=== PATIENT | female | born 1955 | race Caucasian/White ===

== ENCOUNTER 2019-05-18 09:56 | Outpatient (CLI) | payer OTHER, SELFPAY ==
[2019-05-18 11:11] LABS: Albumin Level 4.2 g/dL (3.5-5.1); Hemoglobin A1C 5.7 % (<5.7)
[2019-05-18 11:12] LABS: Urine Cotinine NEGATIVE
[2019-05-18 11:15] LABS: Blood Urea Nitrogen 17 mg/dL (7-17); Calcium 9.5 mg/dL (8.4-10.2); Carbon Dioxide 28 mmol/L (22-30); Chloride 99 mmol/L (98-107); Estimated Glomerular Filt Rate > 60; Glucose 97 mg/dL (65-105); Potassium 4.1 mmol/L (3.4-5.0); Sodium 138 mmol/L (137-145)
[2019-05-18 11:21] LABS: Basophils Absolute Auto 0.1 K/mm3 (0.0-0.1); Basophils Percent Auto 0.7 % (0.2-1.2); Eosinophils Absolute Auto 0.1 K/mm3 (0-0.3); Eosinophils Percent Auto 1.9 % (0-4.4); Hematocrit 43.7 % (37.0-47.0); Hemoglobin 14.4 g/dL (12.0-15.0); Immature Granulocyte Absolute 0.03 K/mm3 (0.00-0.031); Immature Granulocyte Percent A 0.4 % (0-0.5); Lymphocytes Absolute Auto 1.52 K/mm3 (0.9-3.2); Lymphocytes Percent Auto 22.2 % (18.3-44.2); Mean Corpuscular Volume 87.9 fl (80-100); Mean Platelet Volume 9.5 fl (7.4-10.4); Monocytes Absolute Auto 0.5 K/mm3 (0.1-0.6); Monocytes Percent Auto 6.6 % (2.6-8.5); Neutrophils Absolute Auto 4.7 K/mm3 (1.3-6.7); Neutrophils Percent Auto 68.2 % (45.5-73.1); Platelet Count Result 310 k/mm3 (150-375); Red Blood Count 4.97 M/mm3 (4.2-5.4); Red Cell Distribution Width 12.8 % (11.5-14.5); White Blood Count 6.9 K/mm3 (4.5-10.0)
== END 2019-05-18 09:57 | disposition home or self-care (01) ==
PROVIDERS: Anesthesiology; PCP Family Medicine; Visit Provider Orthopaedic Surgery
DX: Z01.818 Encounter for other preprocedural examination (principal); M17.12 Unilateral primary osteoarthritis, left knee; Z79.899 Other long term (current) drug therapy
CPT/HCPCS: 36415; 80048; 80307; 82040; 83036; 85025; 87081

== ENCOUNTER 2019-06-08 11:44 | Inpatient (IN) | payer OTHER, SELFPAY ==
[2019-05-18 10:37] VITALS: BP 160/81; PULSE 68; TEMP 36.8; O2SAT 95; BMI 39.4
[2019-06-08] VITALS (11 sets, daily range): BP systolic 125–165; BP diastolic 55–103; PULSE 94–103; RESP 12–21; TEMP 36.4–37.6; O2SAT 92–100
--- NOTE | ~2019-06-08 | XR_ITS ---
EXAMINATION: XR knee LT 2V DATE: 06/08/2019 10:32 INDICATION: Postoperative evaluation following left total knee arthroplasty. TECHNIQUE: Anteroposterior and lateral views of the left knee were obtained. COMPARISON: None. FINDINGS: Left total knee arthroplasty with patellar resurfacing appears well seated and in near anatomic align ment. No fractures identified. Expected postoperative subcutaneous and intra-articular gas. IMPRESSION: 1. Left total knee arthroplasty, negative for postoperative purposes. Reviewed, dictated and finalized at location A.
[2019-06-08] MEDS: LACTATED RINGERS 1,000 ML 30 ML IV CONT ×2 (06:45→10:26)
--- NOTE | 2019-06-08 06:45 | WPDANESEPPF ---
Anes - Initial Pre Proc Eval Procedure: Operation Date: 06/08/19 07:30 Proposed Procedures p Left Total Knee Arthroplasty - Ang Lazo MD Date/Time: 06/08/19 06:45 Surgeon: Ang Lazo MD Pre Op Diagnosis: Left Knee Osteoarthritis Patient Data Age: 63 Gender: F Height: 4 ft 11.75 in Weight: 90.7 kg Last Vital Signs Temp 36.8 C 05/18/19 10:37 Pulse 68 05/18/19 10:37 BP 160/81 H 05/18/19 10:37 Pulse Ox 95 05/18/19 10:37 Allergies Allergy/AdvReac Type Severity Reaction Status Date / Time Sulfa (Sulfonamide Allergy Unknown Hives Verified 05/18/19 10:58 Antibiotics) Home Medications Medication Instructions Recorded Confirmed Type acetaminophen [Tylenol Extra 1,000 mg PO Q6H PRN 01/11/19 05/24/19 History Strength] cholecalciferol (vitamin D3) 1,000 unit PO DAILY 01/11/19 05/24/19 History [Vitamin D3] fexofenadine [Lissett Allergy] 180 mg PO DAILY 01/11/19 05/24/19 History fluticasone propionate [Flonase 1 spray INTRANASAL DAILY 01/11/19 05/24/19 History Allergy Relief] glucosamine-chondroitin [Osteo 2 tablet PO DAILY 01/11/19 05/24/19 History Bi-Flex] hydrochlorothiazide 25 mg PO DAILY 01/11/19 05/24/19 History meloxicam 15 mg PO DAILY 01/11/19 05/24/19 History vitamin B complex [B 1 tablet PO DAILY 01/11/19 05/24/19 History Complex-Vitamin B12] aspirin 81 mg PO BID #28 tablet 02/17/19 05/24/19 Rx oxycodone-acetaminophen 5 mg-325 1 - 2 tablet PO Q4H PRN #40 tablet 04/21/19 05/24/19 Rx mg tablet MDD 8 Patient hx anesthesia problems: none Family hx anesthesia problems: none PMFSH Past Medical History Medical History Arthritis Contracture, right knee Hypertension Morbid obesity Surgical History Surgical History Osteoarthritis of left knee Presence of right artificial knee joint Social History Social History Smoking status: Never smoker Alcohol intake: never Substance use: never Substance use type: does not use Gender identity (if verbalized by the patient): Female Spiritual care concerns: No Agree to blood products: Yes Anes - Eval Final PreProcedure Day of Procedure 06/08/19 06:45 Patient weight: morbidly obese Heart: regular rate and rhythm Lungs: clear to auscultation Airway: Mallampati scale class II Neurological: alert and oriented Last oral intake: >/= 8 hours ASA classification: III Emergent: no Anesthetic plan: proceed Anesthesia type and monitoring: general LMA and standard monitoring Informed Consent: The patient's anesthetic plan and its attendant risks and benefits were discussed with the patient/family/POA. Questions were solicited and answers provided to the satisfaction of the patient/family/POA.
[2019-06-08] MEDS: TRANEXAMIC ACID 1,000MG/ISO100 1,000 MG/100 ML BAG 200 MG IVPB (07:00)
--- NOTE | 2019-06-08 07:24 | WPDANESPNB ---
Anes - Peripheral Nerve Block Date/Time: 06/08/19 07:24 I have discussed with the patient/family/POA the placement of a peripheral nerve block for post-operative pain management, including associated risks, benefits, complications, and side effects. Alternative methods of post-operative analgesia were detailed. Questions were solicited and answers provided to the satisfaction of the patient/family/POA. Time-Out: A pre-procedural Time-Out was completed immediately before starting the procedure and confirmed: Patient Identification, Site, Procedure, Patient Position and the Availability of Requisite Equipment. Clinical Indications: Acute post-operative pain management requested by the operative surgeon. Nerve Block Insertion Note Anes-nerve block: femoral left Patient position: supine Skin prep: chlorhexidine Needle: 22 gauge, stimulating, insulated echogenic needle. Needle length: 50 mm Technique: nerve stimulation lost at (mA) (0.38) Injectate: bupivacaine 0.25% with epi 5 mcg/ml (20cc) Observations: tolerated well Complications: none
--- NOTE | 2019-06-08 07:24 | WPDHPUPDATE1 ---
History and Physical Update Update Date/Time: 06/08/19 07:24 History and Physical has been reviewed, including an updated exam of the patient. There are NO changes in the patient's condition. Risks, benefits, and alternatives have been discussed and questions answered. Patient agrees to proceed with procedure.
[2019-06-08] MEDS: ceFAZolin 2 GM/D5W 50 ML 2 GM/50 ML BAG IVPB (07:29)
[2019-06-08] MEDS: GENTAMICIN BONE CEMENT REFOBACIN 1 EACH TOPICAL (08:05)
--- NOTE | 2019-06-08 10:48 | PM.PROC ---
Procedure Note - Detailed Date of procedure: 06/08/19 Pre-op diagnosis: Left Knee Osteoarthritis Post-op diagnosis: same Procedure performed: Total knee arthroplasty, left Description of procedure: All cemented total knee arthroplasty. Posterior stabilized femur. Standard bony resections. Very large medial release. Flexion limited by adipose tissue. Preoperative flexion limited to 70?. Implants: Javon Triathlon size 2 cemented femur, size 2 cemented low-profile tibia, 13mm posterior stabilized polyethylene insert, 32mm asymmetric polyethylene patellar component. Anesthesia: GETA and regional (subsartorial nerve block) Surgeon: Ang Lazo MD Estimated blood loss (mL): 200 Drains: No Complications: None Condition: stable Disposition: PACU Findings: OPERATIVE DETAILS: The patient was given a nerve block preoperatively, and then brought to the operating room. A general anesthetic was administered. The leg was prepped and draped in the usual sterile fashion. The limb was elevated and the tourniquet inflated to 300 mmHg during initial exposure, and cementation. A longitudinal incision was created along the medial border of the patella and patellar tendon, and a minimally invasive optimized mid-vastus approach to the knee was performed. A very large medial release was taken. The knee was then flexed. The osteophytes were carefully removed. The intramedullary guide was placed in the femoral canal. The distal femoral resection was then taken with the oscillating saw. The collateral ligaments were carefully protected. The tibia was carefully exposed. The jig was applied, and the proximal tibia was resected according to preoperative plan. The pain really anesthetic mixture was injected into the periarticular tissues. The knee was balanced in extension, and appropriate releases were taken where needed. The anterior cruciate and posterior cruciate ligaments and meniscal remnants were removed. The patella was measured. Patellar resection was carried out with the oscillating saw. The lug holes drilled. The femur was sized and rotation assessed using a combination of gap balancing, posterior referencing, and the AP axis. The 4 in 1 cutting block was used to finish the femoral cuts after equal gaps were assured.The box cut was taken. The osteophytes were carefully removed from the back of the knee. The knee was copiously irrigated with antibiotic solution periodically throughout the procedure. The spacer block was used to confirm equal flexion and extension gaps. The tibia was sized and broached. The bony surfaces were prepared for cementing with pulsatile lavage. The real tibial component and femoral components were cemented into position. Excess cement was carefully removed. The polyethylene insert was placed. The patella component was subsequently cemented. Patellar tracking was carefully assessed. No additional releases were required. The wound was closed with #1 Vicryl suture, #2 Quill suture, 2-Erzllr-idh suture, and 2-0 Strata-fix suture followed by Steri-Strips. A sterile bulky dressing was applied. Meticulous hemostasis was maintained throughout the procedure. There were no complications. The patient was extubated and brought to the recovery room in stable condition after the application of sterile dressing with Henry bandage.
[2019-06-08] MEDS: SODIUM CHLORIDE 0.9% IV 1,000 ML 125 ML IV CONT (13:08)
[2019-06-08] MEDS: VITAMIN B COMPLEX CAPSULE 1 CAP PO (13:14)
[2019-06-08] MEDS: hydroCHLOROthiazide 25 MG TABLET PO (13:14)
[2019-06-08] MEDS: LORATADINE 10 MG TABLET PO (13:14)
[2019-06-08] MEDS: MELOXICAM 7.5 MG TABLET 15 MG PO (13:14)
[2019-06-08] MEDS: CHOLECALCIFEROL 1,000 UNIT TABLET 1000 UNITS PO (13:14)
[2019-06-08] MEDS: DOCUSATE SODIUM 100 MG CAPSULE PO (17:16)
[2019-06-08] MEDS: ASPIRIN 81 MG ENTERIC TABLET PO (17:17)
[2019-06-09 02:00] VITALS: BP 120/51; PULSE 68; RESP 16; TEMP 36.2; O2SAT 97
[2019-06-09 06:00] VITALS: BP 131/56; PULSE 74; RESP 16; TEMP 36.7; O2SAT 98
[2019-06-09 06:04] LABS: Basophils Percent Auto 0.1 % (0.2-1.2); Eosinophils Percent Auto 0.1 % (0-4.4); Hematocrit 33.6 % (37.0-47.0); Hemoglobin 10.9 g/dL (12.0-15.0); Immature Granulocyte Absolute 0.05 K/mm3 (0.00-0.031); Immature Granulocyte Percent A 0.5 % (0-0.5); Lymphocytes Absolute Auto 1.51 K/mm3 (0.9-3.2); Lymphocytes Percent Auto 14.9 % (18.3-44.2); Mean Corpuscular HGB Conc 32.4 g/dl (32-36); Mean Corpuscular Hemoglobin 28.8 pg (26-34); Mean Corpuscular Volume 88.9 fl (80-100); Mean Platelet Volume 9.9 fl (7.4-10.4); Monocytes Absolute Auto 0.9 K/mm3 (0.1-0.6); Monocytes Percent Auto 9.2 % (2.6-8.5); Neutrophils Absolute Auto 7.7 K/mm3 (1.3-6.7); Neutrophils Percent Auto 75.2 % (45.5-73.1); Platelet Count Result 250 k/mm3 (150-375); Red Blood Count 3.78 M/mm3 (4.2-5.4); Red Cell Distribution Width 13.2 % (11.5-14.5); White Blood Count 10.2 K/mm3 (4.5-10.0)
[2019-06-09 06:13] LABS: Blood Urea Nitrogen 14 mg/dL (7-17); Calcium 8.6 mg/dL (8.4-10.2); Carbon Dioxide 33 mmol/L (22-30); Chloride 99 mmol/L (98-107); Estimated Glomerular Filt Rate > 60; Glucose 107 mg/dL (65-105); Potassium 3.4 mmol/L (3.4-5.0); Sodium 134 mmol/L (137-145)
--- NOTE | 2019-06-09 08:03 | P.PNAN_ITS ---
Anes - Prog Note Post-Op Date/Time: 06/09/19 08:03 Cardiovascular status: normal Respiratory status: normal Airway patency: baseline Mental status: baseline Post-Op hydration status: normal Vital Signs: Last Vital Signs Temp 36.7 C 06/09/19 06:00 Pulse 74 06/09/19 06:00 Resp 16 06/09/19 06:00 BP 131/56 L 06/09/19 06:00 Pulse Ox 98 06/09/19 06:00 I/O: Intake & Output 06/08/19 06/09/19 06/09/19 23:59 07:59 15:59 Intake Total 361 1100 Output Total 1650 Balance 361 -550 Laboratory Tests 06/09/19 05:30 06/09/19 05:30 06/08/19 06/09/19 06/09/19 06:27 05:30 05:30 WBC 10.2 H RBC 3.78 L Hgb 10.9 L D Hct 33.6 L MCV 88.9 MCH 28.8 MCHC 32.4 RDW 13.2 Plt Count 250 MPV 9.9 Immature Gran % (Auto) 0.5 Neut % (Auto) 75.2 H Lymph % (Auto) 14.9 L Canadian % (Auto) 9.2 H Eos % (Auto) 0.1 Baso % (Auto) 0.1 L Lymph # (Auto) 1.51 [place] # (Auto) 0.9 H Eos # (Auto) 0.0 Baso # (Auto) 0.0 Abs Immat Gran (auto) 0.05 H Absolute Neuts (auto) 7.7 H Absolute Nucleated RBC 0.0 Nucleated RBC % 0.0 Sodium 134 L Potassium 3.4 Chloride 99 Carbon Dioxide 33 H BUN 14 Creatinine 0.50 L Estim Creat Clear Calc Not Reportable Estimated GFR > 60 Glucose 107 H Calcium 8.6 Blood Type A Positive Antibody Screen Negative Post-procedural complaints: none Patient Feedback: Patient satisfied with anesthetic care.
[2019-06-09] MEDS: FLUTICASONE PROPIONATE 0.05% NA SPR 16 GM BTL (*BKC) 1 SPRAY NASAL (09:24)
[2019-06-09] MEDS: CHOLECALCIFEROL 1,000 UNIT TABLET 1000 UNITS PO (09:25)
[2019-06-09] MEDS: LORATADINE 10 MG TABLET PO (09:25)
[2019-06-09] MEDS: DOCUSATE SODIUM 100 MG CAPSULE PO (09:25)
[2019-06-09] MEDS: hydroCHLOROthiazide 25 MG TABLET PO (09:25)
[2019-06-09] MEDS: VITAMIN B COMPLEX CAPSULE 1 CAP PO (09:25)
[2019-06-09] MEDS: ASPIRIN 81 MG ENTERIC TABLET PO (09:25)
[2019-06-09] MEDS: MELOXICAM 7.5 MG TABLET 15 MG PO (09:25)
--- NOTE | 2019-06-09 13:48 | PM.DS ---
DS: Diagnosis Admitting Diagnosis Admitting Diagnosis: Unilateral primary osteoarthritis, left knee Discharge Diagnosis (1) Osteoarthritis of left knee: Qualifiers: Osteoarthritis type: primary Qualified Code(s): M17.12 - Unilateral primary osteoarthritis, left knee Code(s): M17.12 - Unilateral primary osteoarthritis, left knee Status: Acute (2) Presence of artificial knee joint: Onset Date: 02/16/19 Qualifiers: Laterality: bilateral Qualified Code(s): Z96.653 - Presence of artificial knee joint, bilateral Code(s): Z96.659 - Presence of unspecified artificial knee joint Status: Acute DS: Summary Hospital Course Reason for hospitalization: Total knee arthroplasty. Hospital Course: Tolerated surgery well. Progressed appropriately with therapy. Status at Discharge Functional status at discharge: uses cane/walker Time Spent with Patient Time attestation: Total time spent providing and/or coordinating discharge services: Exam Const: General: no acute distress Resp: Effort & Inspection: normal respiratory effort Skin: Other: Wound healing well. Mepilex dressing intact. No hematoma or drainage. Neuro: Motor exam (neuro): 5/5 motor strength present throughout Sensory Exam: normal sensation Psych: Mental Status: mental status grossly normal Speech and movement: Normal speech and movement present DS: Data Data Completed and Pending Labs on day of discharge: Labs from last 24 hours 06/09/19 06/09/19 05:30 05:30 WBC 10.2 H RBC 3.78 L Hgb 10.9 L D Hct 33.6 L MCV 88.9 MCH 28.8 MCHC 32.4 RDW 13.2 Plt Count 250 MPV 9.9 Immature Gran % (Auto) 0.5 Neut % (Auto) 75.2 H Lymph % (Auto) 14.9 L Grainger % (Auto) 9.2 H Eos % (Auto) 0.1 Baso % (Auto) 0.1 L Lymph # (Auto) 1.51 Grainger # (Auto) 0.9 H Eos # (Auto) 0.0 Baso # (Auto) 0.0 Abs Immat Gran (auto) 0.05 H Absolute Neuts (auto) 7.7 H Absolute Nucleated RBC 0.0 Nucleated RBC % 0.0 Sodium 134 L Potassium 3.4 Chloride 99 Carbon Dioxide 33 H BUN 14 Creatinine 0.50 L Estim Creat Clear Calc Not Reportable Estimated GFR > 60 Glucose 107 H Calcium 8.6 Discharge Plan Discharge Patient Disposition: Home, Self-Care Discharge Instructions: See instruction sheet. Patient Instructions: Pain Management (DC), Precautions after Total Joint Replacement Surgery (DC), Knee Replacement (DC) Follow-up/Referrals: Ang Lazo MD [Physician] - Discharge Medications: Continued oxycodone-acetaminophen 5-325 mg tablet 1 - 2 tablet PO Q4H MDD 8 PRN (Reason: pain) Qty: 56 RF: 0 meloxicam 15 mg Tablet 15 mg PO DAILY RF: 0 fexofenadine [Lissett Allergy] 180 mg Tablet 180 mg PO DAILY RF: 0 vitamin B complex [B Complex-Vitamin B12] Tablet 1 tablet PO DAILY RF: 0 hydrochlorothiazide 25 mg Tablet 25 mg PO DAILY RF: 0 fluticasone propionate [Flonase Allergy Relief] 50 mcg/actuation [place],Suspension 1 spray INTRANASAL DAILY RF: 0 cholecalciferol (vitamin D3) [Vitamin D3] 1,000 unit Capsule 1,000 unit PO DAILY RF: 0 glucosamine-chondroitin [Osteo Bi-Flex] 250-200 mg Tablet 2 tablet PO DAILY RF: 0 aspirin 81 mg Tablet,Delayed Release (Dr/Ec) 81 mg PO BID Qty: 28 RF: 0 Discontinued acetaminophen [Tylenol Extra Strength] 500 mg Tablet 1,000 mg PO Q6H PRN (Reason: Pain) RF: 0 Quality VTE Prophylaxis VTE prophylaxis: mechanical ordered (RONALD ahumada and Richard)
== END 2019-06-09 15:30 | disposition home or self-care (01) | DRG 470 ==
LOC: ANH3MEDSUR 14:06
PROVIDERS: Admitting Provider Orthopaedic Surgery; PCP Family Medicine; Visit Provider Orthopaedic Surgery
PROC: 0SRD0J9 Replacement of Left Knee Joint with Synthetic Substitute, Cemented, Open Approach (ICD-10-PCS; CPT 27447; principal; 2019-06-08 07:30)
DX: M17.12 Unilateral primary osteoarthritis, left knee (principal); I10 Essential (primary) hypertension; Z96.651 Presence of right artificial knee joint; E66.01 Morbid (severe) obesity due to excess calories; Z68.39 Body mass index [BMI] 39.0-39.9, adult
CPT/HCPCS: 36415; 73560; 80048; 85025; 86850; 86900; 86901; 97110; 97116; 97161; 97165; A9270; C1713; C1776; J0131; J0171; J0360; J0690; J1100; J1885; J2250; J2270; J2405; J2704; J2795; J3010; J7030; J7120

== ENCOUNTER 2020-12-20 16:03 | Emergency (ER) | payer OTHER, SELFPAY ==
[2020-12-20 16:18] VITALS: BP 169/85; PULSE 74; RESP 18; TEMP 36.8; O2SAT 96
--- NOTE | 2020-12-20 16:40 | ED.URI ---
HPI - URI/Sore Throat General Chief Complaint: Upper Respiratory Infection Stated Complaint: Sore throat,Congestion Time Seen by Provider: 12/20/20 16:30 Source: patient, RN notes reviewed and old records reviewed Mode of arrival: ambulatory Limitations: no limitations History of Present Illness HPI Narrative: 65-year-old female who presents to [facility] with complaints of sinus congestion and drainage, raspy voice, ear pressure on Friday. Patient states that she lost her voice on Friday and had some sore throat discomfort with cough starting yesterday. Patient states that she has had both of her COVID vaccinations. Patient states that she has been taking OTC cough and cold medication is unsure if she has been running any fevers. MD elicited complaint: cough, sore throat and nasal congestion Related Data Home Medications Medication Instructions Recorded Confirmed fexofenadine [Lissett Allergy] 180 mg PO DAILY 01/11/19 12/20/20 fluticasone propionate [Flonase 1 spray INTRANASAL DAILY 01/11/19 12/20/20 Allergy Relief] hydrochlorothiazide 25 mg PO DAILY 01/11/19 12/20/20 acetaminophen 650 mg tablet 650 mg PO Q6H PRN 12/20/19 12/20/20 Allergies Allergy/AdvReac Type Severity Reaction Status Date / Time Sulfa (Sulfonamide Allergy Mild Hives Verified 12/20/20 16:45 Antibiotics) Review of Systems Review of Systems: CONSTITUTIONAL: Denies known fever, chills, or sweats. EYES: Denies visual changes, redness, or discharge. ENT: Positive for rhinorrhea, congestion, sore throat, or otalgia. CARDIOVASCULAR: Denies chest pain, palpitations, or edema. RESPIRATORY:positive cough denies dyspnea. GASTROINTESTINAL: Denies abdominal pain, nausea, vomiting, or diarrhea. GENITOURINARY: Denies dysuria or hematuria. SKIN: Denies rash or itching. MUSCULOSKELETAL: Denies back pain, joint pain, or myalgia. NEUROLOGIC: Denies headache, numbness, or weakness. PSYCHIATRIC: Denies anxiety or depression. All systems reviewed & are unremarkable except as noted in HPI and below PMFSH Past Medical History Medical History Arthritis Contracture, right knee Hypertension Morbid obesity Surgical History Surgical History History of total left knee replacement (~06/08/19) History of total right knee replacement (~02/16/19) Family History Family History (Updated 12/20/20 @ 17:39 by Radha Rucker NP) Other Hypertension Social History Social History Smoking status: Never smoker Alcohol intake: never Substance use: never Substance use type: does not use Gender identity (if verbalized by the patient): Female Spiritual care concerns: No Agree to blood products: Yes Comments At time of signature, agree with nursing past medical, surgical, social and family history. There is no relevant family history pertinent to the presenting complaint Exam Narrative: GENERAL: Well-appearing, well-nourished, and in no acute distress. HEAD: Normocephalic, atraumatic. EYES: PERRLA and EOMI. ENT: Nares red with clear rhinorrhea no epistaxis. Mucous membranes moist.TM's normal with good light reflex, throat red with no exudates or lesions, some tonsil redness present NECK: Supple. no lymphadenopathy CHEST: Clear to auscultation. No respiratory distress. SAO2 96% on room air cough noted with is non productive. HEART: Regular rate and rhythm. No murmur heard. Normal peripheral pulses. ABDOMEN: Soft, nontender, nondistended, normal active bowel sounds. EXTREMITIES: Normal range of motion. No edema. SKIN: Warm, dry, no rash. NEURO: No focal deficits. Alert and oriented x3. Course Vital Signs Vital signs: Vital Signs Temperature 36.8 C 12/20/20 16:18 Pulse Rate 74 12/20/20 16:18 Respiratory Rate 18 12/20/20 16:18 Blood Pressure 169/85 H 12/20/20 16:18 Pulse Ox
== END 2020-12-20 17:10 | disposition home or self-care (01) ==
PROVIDERS: Emergency Provider Registered Nurse
DX: U07.1 COVID-19 (principal); F19.90 Other psychoactive substance use, unspecified, uncomplicated; I10 Essential (primary) hypertension; E66.01 Morbid (severe) obesity due to excess calories; Z68.42 Body mass index [BMI] 45.0-49.9, adult; Z96.653 Presence of artificial knee joint, bilateral
CPT/HCPCS: 87081; 87426; 87880; 99213; C9803; G0463